=== PATIENT | male | born 1945 | race Hispanic/Latino ===

== ENCOUNTER 2023-08-16 18:11 | Emergency (ER) | payer OTHER, MEDICARE ==
[~2023-08-16] VITALS: Ht 177.8 cm; Wt 75.7 kg
[2023-08-16 18:50] VITALS: BP 163/81; PULSE 79; RESP 20
== END 2023-08-17 | disposition home or self-care (01) ==
LOC: EDH 18:11
DX: R53.1 Weakness (principal); E78.00 Pure hypercholesterolemia, unspecified; I10 Essential (primary) hypertension; E03.9 Hypothyroidism, unspecified; I25.2 Old myocardial infarction; Z86.73 Personal history of transient ischemic attack (TIA), and cerebral infarction without residual deficits
CPT/HCPCS: 99281